=== PATIENT | female | born 1970 | race Caucasian/White ===

== ENCOUNTER 2016-11-18 06:57 | Emergency (ER) | payer MEDICAID ==
[2016-11-18 08:17] VITALS: BP 128/74
[2016-11-18 08:24] LABS: UA SPECIFIC GRAVITY <=1.005 (1.005-1.035); microscopic required? YES; urine erythrocyte 3+ (NEGATIVE)
== END 2016-11-18 08:17 | disposition home or self-care (01) ==
LOC: ED 06:57
PROVIDERS: Emergency Medicine
DX: N39.0 Urinary tract infection, site not specified (principal)
CPT/HCPCS: J0696; Q0162

== ENCOUNTER 2017-07-10 21:13 | Emergency (ER) | payer MEDICAID ==
[~2017-07-10] VITALS: Ht 142.2 cm; Wt 76.2 kg
[2017-07-10 21:22] VITALS: Ht 142.2 cm; Wt 76.2 kg
[2017-07-11 03:23] VITALS: BP 115/68
== END 2017-07-11 03:23 | disposition home or self-care (01) ==
LOC: ED 21:13
DX: M54.32 Sciatica, left side (principal); E11.9 Type 2 diabetes mellitus without complications

== ENCOUNTER 2017-11-15 09:34 | Emergency (ER) | payer MEDICAID ==
[~2017-11-15] VITALS: Ht 149.9 cm; Wt 75.7 kg
[2017-11-15 09:44] VITALS: BP 161/91; Ht 149.9 cm; Wt 75.7 kg
== END 2017-11-15 10:35 | disposition home or self-care (01) ==
LOC: ED 09:34
DX: N39.0 Urinary tract infection, site not specified (principal); E11.9 Type 2 diabetes mellitus without complications
CPT/HCPCS: 82962

== ENCOUNTER 2019-06-03 18:59 | Emergency (ER) | payer MEDICAID ==
[~2019-06-03] VITALS: Ht 149.9 cm; Wt 67.1 kg
[2019-06-03 19:34] VITALS: Ht 149.9 cm; Wt 67.1 kg
[2019-06-03 21:46] VITALS: BP 153/94
== END 2019-06-03 21:46 | disposition home or self-care (01) ==
LOC: ED 18:59
DX: N61.0 Mastitis without abscess (principal); I10 Essential (primary) hypertension; E11.9 Type 2 diabetes mellitus without complications